=== PATIENT | female | born 1965 | race Caucasian/White ===

== ENCOUNTER → 2024-11-14 10:26 | Outpatient (BNVA) | payer OTHER, SELFPAY | PROVIDERS: PCP Family Medicine; Visit Provider Family Medicine | DX: I10 Essential (primary) hypertension (principal) | CPT/HCPCS: 80053; 80061; 84443; 85025 ==

== ENCOUNTER → 2024-11-15 13:45 | Outpatient (BNVA) | payer OTHER, SELFPAY | PROVIDERS: PCP Family Medicine; Visit Provider Family Medicine | DX: E83.52 Hypercalcemia (principal) | CPT/HCPCS: 82310; 83970 ==

== ENCOUNTER → 2024-12-26 12:46 | Outpatient (BNVA) | payer OTHER, SELFPAY | PROVIDERS: PCP Family Medicine; Visit Provider Family Medicine | DX: E78.5 Hyperlipidemia, unspecified (principal); Z78.9 Other specified health status | CPT/HCPCS: 87624 ==

== ENCOUNTER 2024-12-30 08:46 | Outpatient (CLI) | payer OTHER, SELFPAY ==
--- NOTE | 2024-12-30 09:00 | MM_ITS ---
WS: [id number] BILATERAL 3D TOMOSYNTHESIS DIGITAL SCREENING MAMMOGRAPHY WITH CAD CLINICAL INFORMATION: screening HISTORY: Screening mammogram. No current complaints. COMPARISON: Baseline TECHNIQUE: Bilateral CC and MLO views. FINDINGS: Scattered fibroglandular densities bilaterally. No suspicious focal mass, asymmetry, calcifications, or architectural distortion. No evidence of malignancy. A few tiny incidental punctate calcifications. MM/MM scr tomosynthesis [id number] IMPRESSION: DENSITY: There are scattered areas of fibroglandular density. BI-RADS: 2 - Benign. FOLLOW UP: 1 Year Follow-up Recommend return to annual screening mammography.
== END 2024-12-30 08:47 | disposition home or self-care (01) ==
LOC: RAD 08:47
PROVIDERS: PCP Family Medicine; Visit Provider Family Medicine
DX: Z12.31 Encounter for screening mammogram for malignant neoplasm of breast (principal); R92.323 Mammographic fibroglandular density, bilateral breasts
CPT/HCPCS: 77063; 77067

== ENCOUNTER 2025-01-04 09:00 | Outpatient (CLI) | payer OTHER, SELFPAY ==
--- NOTE | 2025-01-04 09:15 | CT_ITS ---
WS: [id number] LDCT LUNG CANCER SCREENING TECHNIQUE: Noncontrast CT of the chest with coronal and sagittal reformatted images. CLINICAL INFORMATION: screening COMPARISON: None. DLP: 41.61 mGy.cm DIvol: Mean CTDIvol: 0.70 (mGy) All CT scans at [facility] use at least one of these dose optimization techniques: automated exposure control; mA and/or kV adjustment per patient size (includes targeted exams where dose is matched to clinical indication); or iterative reconstruction. FINDINGS: Subsegmental ectasis in the lung bases. No suspicious pulmonary parenchymal abnormalities. Aortic calcification. No mediastinal or hilar lymphadenopathy. No axillary lymphadenopathy. CT/CT lung screening [id number] IMPRESSION: LUNG-RADS: 1-Negative FOLLOW UP: 12 Month: Continue annual screening with LDCT
== END 2025-01-04 09:01 | disposition home or self-care (01) ==
LOC: RAD 09:01
PROVIDERS: PCP Family Medicine; Visit Provider Family Medicine
DX: Z12.2 Encounter for screening for malignant neoplasm of respiratory organs (principal); F17.219 Nicotine dependence, cigarettes, with unspecified nicotine-induced disorders; R91.8 Other nonspecific abnormal finding of lung field; I70.0 Atherosclerosis of aorta
CPT/HCPCS: 71271

== ENCOUNTER 2025-01-24 07:16 | Day surgery (SDC) | payer OTHER, SELFPAY ==
[2025-01-24 07:29] VITALS: BP 131/69; PULSE 54; RESP 17; TEMP 36.3; O2SAT 97; BMI 19.2
[2025-01-24 08:12] LABS: Anion Gap 14.0 (5-19); Blood Urea Nitrogen 21 mg/dL (6-20); Calcium 9.7 mg/dL (8.5-10.5); Carbon Dioxide 29 mmol/L (22-29); Chloride 100 mmol/L (98-107); Creatinine Clr Calc Pharmacy 67.9171; Glucose 88 mg/dL (65-115); Osmolality Calculated 290 mOsm/kg (285-295); Potassium 4.0 mmol/L (3.5-5.1); Sodium 139 mmol/L (136-145)
--- NOTE | 2025-01-24 08:15 | ANES.PREANE2 ---
Pre-Anesthetic Assessment Height/Weight: Height 1.57 m Weight 47.627 kg Temp Pulse Resp BP Pulse Ox O2 Del Method 97.4 F L 54 L 17 131/69 97 Room Air 01/24/25 07:29 01/24/25 07:29 01/24/25 07:29 01/24/25 07:29 01/24/25 07:29 01/24/25 07:29 Preop Diagnosis: Dyspepsia Operation Date: 01/24/25 08:30 Proposed Procedures p EGD with Biopsy 97701, K21.9 R10.13 R63.4(Not Applicable) - Kushal Blake MD Was Beta Jered taken within 24 hours: N/A Was Clonidine taken within 24 hours: N/A Last intake: Intake Last Liquid Date 01/23/25 Last Liquid Time 20:00 Last Solid Date 01/23/25 Last Solid Time 19:00 Social smokes weed daily Exam alert, oriented x 3, clear to auscultation bilaterally and regular rate & rhythm Airway Submandibular: within normal limits Cervical ROM: within normal limits Mallampati: Class II Dentition: full History/ROS No significant history except as noted and No significant complaints CV/HEM None reported None reported Hepatic None reported GI Gastroesophageal Reflux Disease Metabolic None reported Musc/skel None reported Neuropsych None reported Anesthetic Plan ASA status: 2 Anesthesia: Anesthesia Evaluation and MAC Risk of > 500 ml blood loss (7ml/kg in children): No Medications/Allergies Home Medications ?Medication ?Instructions ?Recorded ?Confirmed ?Last Taken ?Type lisinopril 5 mg tablet 5 mg PO DAILY #90 tabs 11/14/24 01/24/25 01/23/25 Rx atorvastatin 40 mg tablet (Lipitor) 40 mg PO DAILY #90 tabs 11/15/24 01/24/25 01/23/25 Rx sertraline 50 mg tablet 50 mg PO DAILY #90 tabs 01/05/25 01/24/25 01/23/25 Rx Allergies Allergy/AdvReac Type Severity Reaction Status Date / Time No Known Allergies Allergy Verified 01/24/25 07:26 Current Medications Generic Name Dose Route Start Last Admin Trade Name Freq PRN Reason Stop Dose Admin Sodium Chloride 1,000 mls @ 15 mls/hr 01/24/25 07:19 01/24/25 07:49 Sodium Chloride 0.9% IV 01/25/25 07:18 15 mls/hr .Q24H PRN Administration COLONOSCOPY FLUIDS PFSH Anesthesia Medical History (Updated 01/05/25 @ 10:10 by Kushal Blake MD) History of anal cancer Diagnosed 03/11 - Treated with surgery. HPV. Last followed up with in Jul. Never saw oncology. Benign essential HTN Surgical History History of delivery x 1 Family History Grandfather Cancer Heart disease Grandmother Leukemia Father Heart disease Mother Hypertension Hyperlipidemia Social History Smoking and tobacco/nicotine status: current every day tobacco/nicotine user Alcohol intake: current Alcohol intake frequency: holidays/special occasions only Alcohol type: beer and wine Substance/Drug Use: current Data Anesthesia 01/24/25 07:45 BMP 01/24/25 07:45 Sodium 139 Potassium 4.0 Chloride 100 Carbon Dioxide 29 Creatinine 0.7 Glucose 88 Calcium 9.7
--- NOTE | 2025-01-24 08:36 | W.PM.OPSUD ---
Surgery/Procedure H&P Update DATE OF PROCEDURE: January 24, 2025 DATE H&P PERFORMED: 01/05/25 H&P UPDATE INFORMATION: I have reviewed H&P completed within last 30 days, I have examined patient prior to procedure and No changes to prior documentation PREOP DIAGNOSIS: Dyspepsia PLANNED PROCEDURE: Operation Date: 01/24/25 08:30 Proposed Procedures p EGD with Biopsy [id number], K21.9 R10.13 R63.4(Not Applicable) - Kushal Blake MD
[2025-01-24 08:45] VITALS: BP 92/54; PULSE 57; RESP 16; TEMP 36.1; O2SAT 97
[2025-01-24 09:03] VITALS: BP 102/61; PULSE 54; RESP 16; O2SAT 98
--- NOTE | 2025-01-24 09:25 | ANE.PACU2 ---
Inpatient post-anesthesia follow up: Airway intact: Yes Vital signs: Temperature 97 F Pulse Rate 54 Respiratory Rate 16 Blood Pressure 102/61 Pulse Oximetry 98 Oxygen Delivery Me thod Room Air Oxygen Flow Rate Fraction of Inspir ed Oxygen Hydration adequate: Yes Nausea and vomiting: No Pain level: 1 Mental status: Baseline
== END 2025-01-24 09:25 | disposition home or self-care (01) ==
PROVIDERS: Anesthesiology; PCP Family Medicine; Visit Provider Student in an Organized Health Care Education/Training Program
PROC: 0DJ08ZZ Inspection of Upper Intestinal Tract, Via Natural or Artificial Opening Endoscopic (ICD-10-PCS; principal; 2025-01-24 08:30)
DX: K29.30 Chronic superficial gastritis without bleeding (principal); K21.9 Gastro-esophageal reflux disease without esophagitis; R63.4 Abnormal weight loss; I10 Essential (primary) hypertension; Z85.048 Personal history of other malignant neoplasm of rectum, rectosigmoid junction, and anus; F17.200 Nicotine dependence, unspecified, uncomplicated; Z79.899 Other long term (current) drug therapy
CPT/HCPCS: 36415; 43239; 80048; 88305; J2704; J7030

== ENCOUNTER → 2025-02-06 10:20 | Outpatient (BNVA) | payer OTHER, SELFPAY | PROVIDERS: PCP Family Medicine; Visit Provider Family Medicine | DX: E78.5 Hyperlipidemia, unspecified (principal) | CPT/HCPCS: 80053; 80061 ==

== ENCOUNTER 2025-04-21 19:23 | Emergency (ER) | payer OTHER, SELFPAY ==
--- OUTSIDE RECORDS SUMMARY | 2019-05-30 19:00 | XMS_ITS | Continuity of Care Document ---
Author Organization [facility] Address [address] [place] [address] Phone Care Team Providers Care Executive Secretary Name Role Phone Mitul Pang OD Unavailable Unavailable Advance Directives Directive Yes / No Effective Date File Name No Information Encounters Encounter Description Practice Location Reason(s) For Visit Diagnoses Date Provider Providers Copied on Encounter Formerly [facility], [address] [place], [address], [place] tel: [phone] [place] [id number] [facility] Hypermetropia, unspecified eyeUnspecified astigmatism, unspecified eyePresbyopia [address] , [place], [place], [id number] , [place]. tel: [phone] Family History Family Member Type Diagnosis Age At Onset No Information Payers Payer name Insurance type Covered democrat ID Authoriza tion(s) No Information Social History Type Description Quantity Date Captured Comments Sex Female Smoking Status No Information Chief Complaint And Reason For Visit No Information Reason For Referral Reason For Referral No Information History Of Present Illness Encounter Date Complaint History Of Prese nt Illness No Information Functional Status Date Functional Assessmen t No Information Instructions Date Instruction Additional Infor mation Impression/Plan Assessments Type Assessment Date No Information Patient Care Teams Name Effective Dates (start - stop) Status Members No Information
[2025-04-21 19:29] VITALS: BP 153/63; PULSE 53; RESP 18; TEMP 36.6; O2SAT 97; BMI 17.9
[2025-04-21 19:50] VITALS: BP 136/74; PULSE 79; RESP 18; O2SAT 98
--- NOTE | 2025-04-21 19:53 | CTR_ITS ---
PROCEDURE INFORMATION: Exam: CT Head Without Contrast Exam date and time: 04/21/2025 8:06 PM Age: 60 years old Clinical indication: EMS arrival for seizure activity; Additional info: Dylan TECHNIQUE: Imaging protocol: Computed tomography of the head without contrast. Radiation optimization: All CT scans at this facility use at least one of these dose optimization techniques: automated exposure control; mA and/or kV adjustment per patient size (includes targeted exams where dose is matched to clinical indication); or iterative reconstruction. COMPARISON: No relevant prior studies available. RADIATION DOSE METRICS: Total DLP (mGy-cm): 1065.47 FINDINGS: Brain: No acute infarction, hemorrhage, mass, or extra-axial fluid collection is identified. No midline shift. Cerebral ventricles: No hydrocephalus. Paranasal sinuses: Paranasal sinuses are grossly clear. Mastoid air cells: Mastoid air cells are grossly clear. Bones: Calvarium appears intact. Soft tissues: Unremarkable. CT/CT head wo con* [id number] IMPRESSION: No acute intracranial abnormality.
--- NOTE | 2025-04-21 19:58 | ECG_ITS ---
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 Measurements Intervals [place] Rate: 47 P: 79 [place]: 163 QRS: 87 QRSD: 85 T: 78 QT: 437 QTc: 388 Interpretive Statements SINUS BRADYCARDIA VOLTAGE CRITERIA FOR LVH [MEETS CRITERIA IN ONE OF: R(aVL), S(V1), R(V5), R(V5/V6)+S(V1)] No previous ECG available for comparison Electronically Signed On 04-22-2025 14:28:14 CDT by Geovanny Waller M.D. [email or web address]
--- NOTE | 2025-04-21 20:12 | ED_ITS ---
HPI - Seizure 2 General: Chief Complaint: Seizure Stated Complaint: seizure Time Seen by Provider: 04/21/25 19:24 History of Present Illness: HPI Narrative: Patient is a 60-year-old who presents following a seizure episode. Patient reports sitting in their car when they experienced feeling extremely hot, weak, and had difficulty breathing. Patient states they were feeling unwell and went to sit in their car with the AC on. Prior to the seizure, patient describes an overwhelming feeling of heat and difficulty breathing, possibly with some panic. Patient lost consciousness during the event. According to the patient, they were witnessed to have a seizure by friends. Patient reports urinary incontinence during the episode. Upon regaining consciousness, patient noted a sore throat. Patient denies tongue biting. Patient reports a previous similar episode where they were sitting in a rocking chair and thought they had just blacked out but was told by their partner that they had a seizure. Patient also describes experiencing episodes of feeling extremely hot ( searing heat ) that comes on suddenly after feeling cold. Patient reports recent symptoms of nausea, difficulty eating, and feeling weak. Patient mentions jaw fatigue while eating. She has been diagnosed with chronic gastritis and has been losing weight. Related Data Previous Rx's ?Medication ?Instructions ?Recorded sertraline 50 mg tablet 50 mg PO DAILY #90 tabs 01/17 03/13 lisinopril 5 mg tablet 5 mg PO DAILY #90 tabs 02/10 pantoprazole 40 mg tablet,delayed 40 mg PO BID 6 weeks #84 tabs 03/03/25 release sucralfate 1 gram tablet (Carafate) 1 g PO BID 6 weeks #84 tabs 03/03/25 Allergies Allergy/AdvReac Type Severity Reaction Status Date / Time No Known Allergies Allergy Verified 04/11/25 11:14 Review of Systems 2 Narrative: Constitutional: Reports feeling weak, episodes of feeling extremely hot Neurological: Reports seizure with loss of consciousness, no tongue biting Gastrointestinal: Reports nausea, difficulty eating Musculoskeletal: Reports jaw fatigue while eating Genitourinary: Urinary incontinence during seizure episode ENT: Sore throat after seizure episode All other systems: Negative or not addressed in this encounter PFSH ED 2 PFSH: Medical History (Updated 04/21/25 @ 22:52 by Edil Herrera DO) History of anal cancer Diagnosed 03/11 - Treated with surgery. HPV. Last followed up with in Jul. Never saw oncology. Benign essential HTN Surgical History History of delivery x 1 Family History Grandfather Cancer Heart disease Grandmother Leukemia Father Heart disease Mother Hypertension Hyperlipidemia Social History Smoking and tobacco/nicotine status: current every day tobacco/nicotine user Alcohol intake: current Alcohol intake frequency: holidays/special occasions only Alcohol type: beer and wine Substance/Drug Use: current Physical Exam 2 Const: COMMON NORMALS: alert GENERAL APPEARANCE: cooperative and anxious NUTRITIONAL APPEARANCE: thin ORIENTATION/CONSCIOUSNESS: Yes oriented to person, Yes oriented to place and Yes oriented to time HENMT: COMMON NORMALS: normocephalic, atraumatic and Normal external nose present HEAD & SCALP: normocephalic and atraumatic FACE & SINUS: normal facial exam and face symmetric NOSE: Normal external nose present Eye: COMMON NORMALS: Equal, round and reactive pupils present and EOMs intact bilaterally PUPIL: Yes Equal, round and reactive pupils present Neck/C-Spine: GENERAL: Yes trachea midline Chest: CHEST: Yes Symmetrical chest wall rise Resp: COMMON NORMALS: normal respiratory effort, No retractions, No use of accessory muscles and clear to auscultation bilaterally AUSCULTATION: clear to auscultation bilaterally Cardio: COMMON NORMALS: regular rate and regular rhythm RATE: regular rate RHYTHM: regular rhythm HEART SOUNDS: Murmur heart sound present systolic GI: COMMON NORMALS: Normal to inspection, nondistended, normoactive bowel sounds present Extremity: COMMON NORMALS: no pedal edema Neuro: VINNY COMA SCALE: document GCS findings [place] coma scale eye opening: Spontaneous [place] coma scale verbal response: Orientated [place] coma scale motor response: Obey commands Vinny coma scale total score: 15 S ENSORIUM/ORIENTATION: Yes alert, Yes oriented to person, Yes oriented to place and Yes oriented to time COORDINATION/BALANCE: [id number]-[id number] test normal and vtyl-[id number] test normal SPEECH: speech normal SENSORY EXAM: Yes extremities (intact) MOTOR EXAM: Pronator motor function not present C OORDINATION: [id number]-lb-[id number] test normal and oukk-qr-yilp test normal Psych: COMMON NORMALS: speech normal SPEECH: Yes normal speech Skin: COMMON NORMALS: no rashes or lesions noted GENERAL SKIN EXAM: no rashes or lesions noted Course 2 Vital Signs: Vital signs: Vital Signs Temperature 98 F 04/21/25 19:29 Pulse Rate 54 L 04/21/25 22:47 Respiratory Rate 16 04/21/25 22:47 Blood Pressure 104/56 04/21/25 22:47 Pulse Oximetry 95 04/21/25 22:47 Oxygen Delivery Me thod Room Air 04/21/25 22:47 MDM - Seizure MDM Narrative Medical decision making narrative: Vitals are stable here. She is mildly bradycardic. Head CT is negative. CBC shows white blood cell count of 13 without left shift. Wounds 23, creatinine 1.0. She is given a liter of fluid for this. Other laboratory including lactate, CPK, etc. are not actionable. She is positive for marijuana which could be acute contributing factor. EKG shows sinus bradycardia without ST wave changes. Troponin remained normal. No episodes of seizure or syncope here. She is feeling improved. She will be discharged. Outpatient follow-up. Further testing likely needed as an outpatient. She will return for repeated episodes of syncope or passing out. Lab Data 04/21/25 19:35 04/21/25 19:35 Labs: Radiology Impressions Head CT 04/21/25 19:53 IMPRESSION: No acute intracranial abnormality. Laboratory Results WBC 12.87 10^3/uL (3.29-11.43) H 04/21/25 19:35 RBC 5.33 10^6/uL (3.85-5.65) 04/21/25 19:35 Hgb 16.30 g/dL (11.27-16.99) 04/21/25 19:35 Hct 45.4 % (36-47) 04/21/25 19:35 MCV 85.2 fl (85-98) 04/21/25 19:35 MCH 30.6 pg (27-33) 04/21/25 19:35 MCHC 35.9 g/dL (30-55) 04/21/25 19:35 RDW 13.8 % (12.1-15.1) 04/21/25 19:35 Plt Count 281 10^3/cmm (157-399) 04/21/25 19:35 MPV 10.2 fL (7.4-10.4) 04/21/25 19:35 Neut % (Auto) 82.5 % 04/21/25 19:35 Lymph % (Auto) 11.7 % 04/21/25 19:35 Grainger % (Auto) 4.9 % 04/21/25 19:35 Eos % (Auto) 0.2 % 04/21/25 19:35 Baso % (Auto) 0.3 % 04/21/25 19:35 Neut # (Auto) 10.62 10^3/uL (1.8-7.7) H 04/21/25 19:35 Lymph # (Auto) 1.5 10^3/uL (0.8-4.8) 04/21/25 19:35 Grainger # (Auto) 0.6 10^3/uL (0.2-0.9) 04/21/25 19:35 Eos # (Auto) 0.0 10^3/uL (0.0-0.8) 04/21/25 19:35 Baso # (Auto) 0.0 10^3/uL (0.0-0.1) 04/21/25 19:35 Nucleated RBC % (auto) 0 % 04/21/25 19:35 Nucleated RBCs # 0.0 /100WBC 04/21/25 19:35 Sodium 136 mmol/L (136-145) 04/21/25 19:35 Potassium 3.7 mmol/L (3.5-5.1) 04/21/25 19:35 Chloride 94 mmol/L (98-107) L 04/21/25 19:35 Carbon Dioxide 26 mmol/L (22-29) 04/21/25 19:35 Anion Gap 19.7 (5-19) H 04/21/25 19:35 BUN 23 mg/dL (6-20) H 04/21/25 19:35 Creatinine 1.0 mg/dL (0.5-0.9) H 04/21/25 19:35 GFR Calculation 56.7 mL/min (90-130) L 04/21/25 19:35 Glucose 102 mg/dL (65-115) 04/21/25 19:35 Calculated Osmolality 286 mOsm/kg (285-295) 04/21/25 19:35 Lactic Acid 1.0 mmol/L (0.5-2.2) 04/21/25 19:35 Calcium 10.7 mg/dL (8.5-10.5) H 04/21/25 19:35 Phosphorus 2.7 mg/dL (2.5-4.5) 04/21/25 19:35 Magnesium 2.3 mg/dL (1.7-2.3) 04/21/25 19:35 Total Bilirubin 0.8 mg/dL (0.15-1.2) 04/21/25 19:35 AST 35 U/L (0-32) H 04/21/25 19:35 ALT 38 U/L (0-33) H 04/21/25 19:35 Alkaline Phosphatase 118 U/L (35-105) H 04/21/25 19:35 Creatine Kinase 150 U/L (26-192) 04/21/25 19:35 Troponin T Baseline 9 ng/L (0-10) 04/21/25 19:35 Troponin T 120 Minute 6.98 ng/L (0-10) 04/21/25 21:19 Delta Troponin T -2.02 ABS# (0-10) L 04/21/25 21:19 C-Reactive Protein 3.0 mg/L (0.0-4.9) 04/21/25 19:35 Total Protein 9.5 g/dL (6.6-8.7) H 04/21/25 19:35 Albumin 5.1 g/dL (3.5-5.2) 04/21/25 19:35 Globulin 4.4 g/dL (1.3-4.6) 04/21/25 19:35 Urine Color Dark yellow (Yellow) A 04/21/25 20:07 Urine Appearance Cloudy (CLEAR) A 04/21/25 20:07 Urine pH 6.0 (5-7) 04/21/25 20:07 Ur Specific [place] 1.025 (1.005-1.030) 04/21/25 20:07 Urine Protein 2+ (Negative) A 04/21/25 20:07 Urine Glucose (UA) Negative (Normal) 04/21/25 20:07 Urine Ketones 1+ (Negative) H 04/21/25 20: Urine Blood 3+ (Negative) A 04/21/25 20:07 Urine Nitrate Negative (Negative) 04/21/25 20:07 Urine Bilirubin 1+ (Negative) H 04/21/25 20:07 Urine Urobilinogen 1.0 mg/dL (Negative) 04/21/25 20:07 Ur Leukocyte Esterase 1+ (Negative) A 04/21/25 20:07 Urine RBC 51-100 /hpf (0-2) H 04/21/25 20:07 Urine WBC 6-10 /hpf (0-5) 04/21/25 20:07 Ur Squamous Epith Cells 15-25 /hpf (0-5) H 04/21/25 20:07 Ur Transition Epith Cell 0-4 /hpf 04/21/25 20:07 Amorphous Sediment Not Reportable 04/21/25 20:07 Urine Bacteria 1+ /hpf (NONE) H 04/21/25 20:07 Hyaline Casts 11-20 /lpf 04/21/25 20:07 Fine Granular Casts 0-4 /lpf H 04/21/25 20:07 Urine Mucus 2+ /hpf 04/21/25 20:07 Ur Oval Fat Bodies None /hpf 04/21/25 20:07 Urine Opiates Screen Negative ng/mL (Negative) 04/21/25 20:07 Ur Barbiturates Screen Negative ng/mL (Negative) 04/21/25 20:07 Ur Phencyclidine Scrn Negative ng/mL (Negative) 04/21/25 20:07 Ur Amphetamines Screen Negative ng/mL (Negative) 04/21/25 20:07 U Benzodiazepines Scrn Negative ng/mL (Negative) 04/21/25 20:07 Urine Cocaine Screen Negative ng/mL (Negative) 04/21/25 20:07 U Marijuana (THC) Screen Positive ng/mL (Negative) H 04/21/25 20:07 Ethyl Alcohol < 10 mg/dL (0-10) 04/21/25 19:35 All radiology interpretation(s) finalized by discharge Discharge Plan Discharge Patient Disposition: Home Clinical Impression: Generalized seizure Condition: Stable Prescriptions: No Action sertraline 50 mg tablet 50 mg PO DAILY Qty: 90 1RF lisinopril 5 mg tablet 5 mg PO DAILY Qty: 90 1RF sucralfate [Carafate] 1 gram tablet 1 g PO BID 42 Days Qty: 84 0RF pantoprazole 40 mg tablet,delayed release (DR/EC) 40 mg PO BID 42 Days Qty: 84 0RF Discharge Orders: Discharge ED (Routine); Ordered 04/21/25 Ordered By: Edil Herrera Referrals: Mayte Basilio NP [Primary Care Provider, [facility]] - 1-3 days Patient Instructions: Opioid Safety, Pain Management, Patient Portal & Rosemarie Instructions Activity Restrictions/Additional Instructions: Return immediately for repeated episodes of seizure, passing out, mental status changes, any other concerning symptoms. Follow-up with your doctor this coming week. Call for an appointment. Stay in a cool environment for the next 48 hours. Stay hydrated. Print Language: Faroese Coding Level of Care Code ED Builder'S Labourer for Zeny Simeon
[2025-04-21 20:17] LABS: Glucose Urine UA Negative (Normal); Nitrate Urine Negative (Negative); Specific Gravity, Urine 1.025 (1.005-1.030)
[2025-04-21 20:24] LABS: Alanine Aminotransferase 38 U/L (0-33); Albumin Level 5.1 g/dL (3.5-5.2); Alkaline Phosphatase 118 U/L (35-105); Anion Gap 19.7 (5-19); Aspartate Amino Transferase 35 U/L (0-32); Blood Urea Nitrogen 23 mg/dL (6-20); Calcium 10.7 mg/dL (8.5-10.5); Carbon Dioxide 26 mmol/L (22-29); Chloride 94 mmol/L (98-107); Globulin 4.4 g/dL (1.3-4.6); Glucose 102 mg/dL (65-115); Magnesium 2.3 mg/dL (1.7-2.3); Osmolality Calculated 286 mOsm/kg (285-295); Potassium 3.7 mmol/L (3.5-5.1); Sodium 136 mmol/L (136-145); Total Protein 9.5 g/dL (6.6-8.7); Troponin(5th) Baseline 9 ng/L (0-10)
[2025-04-21 20:26] LABS: Lactic Sepsis W/Reflex 1.0 mmol/L (0.5-2.2)
[2025-04-21 20:30] LABS: UA Manual Slide Review YES; UA Slide Review UA Slide Review Perf
[2025-04-21 20:34] LABS: Add Urine Microscopic? YES
[2025-04-21 20:42] LABS: Hematocrit 45.4 % (36-47); Hemoglobin 16.30 g/dL (11.27-16.99); Mean Corpuscular HGB Conc 35.9 g/dL (30-55); Mean Corpuscular Hemoglobin 30.6 pg (27-33); Mean Corpuscular Volume 85.2 fl (85-98); Nucleated Red Blood Cells % 0 %; Platelet Count 281 10^3/cmm (157-399); Red Blood Count 5.33 10^6/uL (3.85-5.65); White Blood Count 12.87 10^3/uL (3.29-11.43)
[2025-04-21 20:44] LABS: Alcohol Level < 10 mg/dL (0-10); Creatinine Clr Calc Pharmacy 45.7130
[2025-04-21 20:54] LABS: PCP Screen Urine Negative (Negative)
--- NOTE | 2025-04-21 21:42 | ECG_ITS ---
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 Measurements Intervals [place] Rate: 43 P: 81 [place]: 156 QRS: 85 QRSD: 89 T: 101 QT: 462 QTc: 392 Interpretive Statements SINUS BRADYCARDIA Compared to ECG 04/21/2025 19:58:01 Left ventricular hypertrophy no longer present Electronically Signed On 04-22-2025 14:39:47 CDT by Geovanny Waller M.D. [id number]
[2025-04-21 21:48] LABS: Troponin 5 2HR 6.98 ng/L (0-10); Troponin 5 2HR Delta -2.02 ABS# (0-10)
[2025-04-21 22:47] VITALS: BP 104/56; PULSE 54; RESP 16; O2SAT 95
== END 2025-04-21 23:36 | disposition home or self-care (01) ==
PROVIDERS: Emergency Provider Emergency Medicine; PCP Nurse Practitioner Family
DX: R56.9 Unspecified convulsions (principal); Z72.0 Tobacco use; I10 Essential (primary) hypertension; Z85.048 Personal history of other malignant neoplasm of rectum, rectosigmoid junction, and anus
CPT/HCPCS: 36415; 70450; 80053; 80306; 80307; 81001; 82550; 83605; 83735; 84100; 84484; 85025; 86140; 93005; 99284; J7030

== ENCOUNTER → 2025-06-02 12:48 | Outpatient (BNVA) | payer OTHER, SELFPAY | PROVIDERS: PCP Nurse Practitioner Family; Visit Provider Nurse Practitioner Family | DX: R63.4 Abnormal weight loss (principal); R94.4 Abnormal results of kidney function studies; R30.0 Dysuria; R31.9 Hematuria, unspecified; M41.54 Other secondary scoliosis, thoracic region | CPT/HCPCS: 71046; 80053; 81000; 85025; 87086 ==